=== PATIENT | female | born 1935 | race Caucasian/White ===

== ENCOUNTER 2023-04-14 13:59 | Outpatient (CLI) | payer MEDICARE | END 2023-04-14 14:00 | disposition home or self-care (01) | LOC: CSHMAMMO 13:59 | PROVIDERS: ATTEND Internal Medicine | DX: Z12.31 Encounter for screening mammogram for malignant neoplasm of breast (principal); Z13.820 Encounter for screening for osteoporosis; M81.0 Age-related osteoporosis without current pathological fracture; Z78.0 Asymptomatic menopausal state | CPT/HCPCS: 77063; 77067; 77080 ==